=== PATIENT | male | born 1960 | race Two or more races ===

== ENCOUNTER 2017-06-20 10:15 | Outpatient (CLI) | payer OTHER | END 2017-06-20 10:26 | disposition home or self-care (01) | LOC: RAD 501 10:15 | DX: M25.572 Pain in left ankle and joints of left foot (principal) ==

== ENCOUNTER 2018-04-14 15:43 | Outpatient (CLI) | payer OTHER | END 2018-04-14 15:51 | disposition home or self-care (01) | LOC: RAD 15:43 | DX: M25.572 Pain in left ankle and joints of left foot (principal) ==

== ENCOUNTER → 2018-05-12 10:24 | Outpatient (CLI) | payer OTHER | END | disposition home or self-care (01) | LOC: LAB 10:24 | DX: D64.89 Other specified anemias (principal); E88.89 Other specified metabolic disorders; D68.8 Other specified coagulation defects; N39.0 Urinary tract infection, site not specified; Z22.322 Carrier or suspected carrier of Methicillin resistant Staphylococcus aureus ==

== ENCOUNTER 2018-05-21 15:58 | Outpatient (CLI) | payer OTHER ==
[2018-05-21] MEDS ORDERED: MICARDIS HCT 41 EACH PO (16:40)
== END 2018-05-21 16:06 | disposition home or self-care (01) ==
LOC: RAD 15:58
DX: Z01.818 Encounter for other preprocedural examination (principal); I10 Essential (primary) hypertension

== ENCOUNTER 2018-05-30 06:32 | Day surgery (SDC) | payer OTHER ==
[~2018-05-30 06:32] MED LIST: MICARDIS HCT 41 EACH PO
== END 2018-05-30 15:45 | disposition home or self-care (01) ==
LOC: CIR.AMB 06:32
DX: M76.62 Achilles tendinitis, left leg (principal); M65.872 Other synovitis and tenosynovitis, left ankle and foot

== ENCOUNTER 2019-05-20 18:12 | Outpatient (CLI) | payer OTHER | END 2019-05-20 18:40 | disposition home or self-care (01) | LOC: RAD 18:12 | DX: M16.11 Unilateral primary osteoarthritis, right hip (principal) ==

== ENCOUNTER 2019-05-29 06:54 | Outpatient (CLI) | payer OTHER | END 2019-05-29 09:42 | disposition home or self-care (01) | LOC: LAB 06:54 | DX: D64.89 Other specified anemias (principal); E88.89 Other specified metabolic disorders; D68.8 Other specified coagulation defects; N39.0 Urinary tract infection, site not specified; Z22.322 Carrier or suspected carrier of Methicillin resistant Staphylococcus aureus; I49.8 Other specified cardiac arrhythmias; I10 Essential (primary) hypertension ==

== ENCOUNTER → 2019-06-01 | Outpatient (CLI) | payer OTHER | END | disposition home or self-care (01) | LOC: RAD 13:34 | DX: Z76.89 Persons encountering health services in other specified circumstances (principal) ==

== ENCOUNTER 2019-06-10 14:45 | Inpatient (IN) | payer OTHER ==
[~2019-06-10] VITALS: Ht 167.6 cm; Wt 90.7 kg
== END 2019-06-20 16:01 | disposition home or self-care (01) | DRG 470 ==
LOC: O/R 06-15 07:00 → SURH 06-15 09:39 → O/R 06-15 09:39 → SURH 06-15 18:20
PROVIDERS: ADMIT Orthopaedic Surgery
PROC: 4A19X1Z Monitoring of Respiratory Capacity, External Approach (ICD-10-PCS; 2019-06-15)
PROC: 0SRB0JZ Replacement of Left Hip Joint with Synthetic Substitute, Open Approach (ICD-10-PCS; principal; 2019-06-15 07:00)
DX: M16.12 Unilateral primary osteoarthritis, left hip (principal); I10 Essential (primary) hypertension